=== PATIENT | female | born 1950 | race Caucasian/White ===

== ENCOUNTER 2018-04-21 09:30 | Emergency (ER) | payer MEDICARE ==
[2018-04-21] MEDS ORDERED: Marcaine 0.5%/Epinephrine 10 ML IJ ONE (10:02)
[2018-04-21] MEDS ORDERED: Marcaine 0.5%/Epinephrine 10 ML ONE (10:08)
--- NOTE | 2018-04-21 10:42 | ERPHSYRPT ---
- History of Present Illness Time Seen by Provider: 04/21/18 09:37 Source: patient, family Exam Limitations: no limitations Patient Subjective Stated Complaint: slipped on a slimy area on the ground .. fell and hit the back of her head. No LOC laceration tthe back of her head.. Undertermined size due to hair. JOSELITO DAVILA denies other injuries.. NO neck pain Triage Nursing Assessment: slipped on a slimy area on the ground .. fell and hit the back of her head. No LOC laceration tthe back of her head.. Undertermined size due to hair. JOSELITO DAVILA denies other injuries.. NO neck pain Physician History: [place] falling and striking post occiput; no LOC; stunned briefly; no seizure or neck injury; no blurred vision; no other complaints; no N&V ; no prior hx; witnessed; slight bleeding and local pain only Occurred: just prior to arrival, this morning Severity: moderate Head Injury Location: occipital Method of Injury: fell (slipped on wet dock) Loss of Consciousness: no loss of consciousness Associated Symptoms: denies symptoms Allergies/Adverse Reactions: tramadol Allergy (Intermediate, Verified 04/21/18 10:28) amlodipine [From Norvas] Allergy (Mild, Verified 04/21/18 10:28) lisinopril Allergy (Verified 04/21/18 10:28) metformin Allergy (Verified 04/21/18 10:28) IV dye Allergy (Intermediate, Uncoded 04/21/18 10:28) Immunizations Up to Date: (unknown) - Review of Systems Constitutional: No Symptoms Eyes: No Symptoms Ears, Nose, & Throat: No Symptoms Respiratory: No Cough, No Dyspnea, No Wheezing Cardiac: No Chest Pain, No Palpitations, No Syncope Abdominal/Gastrointestinal: No Abdominal Pain, No Nausea, No Vomiting, No Diarrhea Genitourinary Symptoms: No Symptoms Musculoskeletal: Fall, Injury (post occiput ), No Back Pain, No Neck Pain, No Joint Pain Skin: Other (lac to post occiput), No Cellulitis, No Decubiti, No Rash Neurological: No Gait Changes, No Headache, No Seizure, No Sensory Changes, No Speech Changes, No Vertigo Psychological: No Symptoms Endocrine: No Symptoms Hematologic/Lymphatic: No Symptoms Immunological/Allergic: No Symptoms - Past Medical History Pertinent Past Medical History: Yes - Past Surgical History Past Surgical History: Yes - Social History Smoking Status: Never smoker Exposure to second hand smoke: No Alcohol Use: Socially Drug Use: none Patient Lives Alone: No Significant Family History: no pertinent family hx - Female History Hx Now: No - Nursing Vital Signs Nursing Vital Signs: Initial Vital Signs Temperature 98 F 04/21/18 10:00 Pulse Rate 88 04/21/18 10:00 Respiratory Rate 18 04/21/18 10:00 Blood Pressure 153/106 04/21/18 10:00 O2 Sat by Pulse Oximetry 96 04/21/18 10:00 Pain Scale Pain Intensity 5 - [place] Coma Score Best Eye Response ([place]): (4) open spontaneously Best Verbal Response ([place]): (5) oriented Best Motor Response ([place]): (6) obeys commands [place] Total: 15 - Physical Exam General Appearance: mild distress, alert Head Injury: lacerations (5 cm post occiput with mild bleeding; no FB), tenderness (local to lasceration), No Aguilar's Sign, No ecchymosis, No flap, No raccoon eyes Eye Exam: bilateral eye: normal inspection, PERRL, EOMI, other (vision ok and fundi benign) ENT Exam: airway nml, nml ext.inspection, hearing grossly normal, No clotted nasal blood, No malocclusion, No oral injury Neck Exam: supple, trachea midline, full range of motion, normal alignment, normal inspection, No muscle spasm, No paraspinous muscle tender, No pain on movement of neck, No tenderness, No JVD Cardiovascular/Respiratory Exam: chest non-tender, normal breath sounds, regular rate/rhythm, heart sounds normal, no ecchymosis, no JVD, no M/R/G, no respiratory distress Gastrointestinal/Abdominal Exam: soft, non tender, no distention, no mass, no guarding, no ecchymosis, no organomegaly, normal bowel sounds Pelvic Exam: deferred Rectal Exam: deferred Back Exam: normal inspection, normal range of motion, No CVA tenderness, No vertebral tenderness Extremity Exam: non-tender, normal range of motion, normal inspection, normal capillary refill, No nazia's sign Mental Status Exam: alert, oriented x 3, cooperative tire repair mechanic Exam: normal hearing, normal speech Coordination/Gait Exam: normal gait, normal cerebellar function Motor/Sensory Exam: no motor deficit, no sensory deficit, CN II-XII intact DTR Exam: knee (R): 4+, knee (L): 4+ Skin Exam: normal color, warm, dry, laceration (irregular 5cm post occiput; local tenderness; no FB; min bleeding), No rash, No petechiae, No cyanosis SpO2 Interpretation: normal SpO2: 96 Oxygen Delivery: Room Air Procedures - Laceration/Wound Repair Posterior Medial Head Wound Location: head (post occiput) Wound Length (cm): 5 Wound's Depth, Shape: irregular, into subcut Wound Explored: to base Irrigated: Yes Hibiclens Prep: Yes Anesthesia: local, marcaine 0.5 Volume Anesthetic (ccs): 6 Wound Repaired With: sutures Suture Size/Type: 4-0, chromic gut Number of Sutures: 8 (running interlocking) Layer Closure?: No Sterile Dressing Applied?: Yes Splint Applied?: No Sling Applied?: No - Course Nursing assessment & vital signs reviewed: Yes Ordered Tests: Active Orders 24 hr Category Date Time Status Cold Application STAT Care 04/21/18 10:00 Active Prepare for Sutures STAT Care 04/21/18 10:01 Active Re-Check Vital Signs STAT Care 04/21/18 10:00 Active Sutures STAT Care 04/21/18 10:02 Active Wound Care STAT Care 04/21/18 10:00 Active Medication Summary Discontinued Medications Generic Name Dose Route Start Last Admin Trade Name Rajiv PRN Reason Stop Dose Admin Bupivacaine HCl/Epinephrine Bitart 5 ml 04/21/18 10:02 04/21/18 10:30 Marcaine 0.5%/Epinephrine 10 Ml IJ 04/21/18 10:03 5 ml STAT ONE Administration Bupivacaine HCl/Epinephrine Bitart Confirm 04/21/18 10:08 Marcaine 0.5%/Epinephrine 10 Ml Administered 04/21/18 10:09 Dose 10 ml .ROUTE .STK-MED ONE - Progress Progress: improved, re-examined (after repair) Progress Note: 04/21/18 10:[address] and patient and family elected to observe; recheck showed no indication for such; tolerated procedure well; instructions given Counseled pt/family regarding: diagnosis, need for follow-up - Departure Time of Disposition: 10:45 Departure Disposition: Home Clinical Impression: Head injury due to trauma, 5 cm scalp laceration Condition: Stable Critical Care Time: No Referrals: GONZALO [facility] ATTENDANT [Primary Care Provider] - Instructions: Wound Care (DC), Laceration Repair With Stitches (DC) Additional Instructions: rest; clean and ddry 48 hrs; bacitracin daily; tylenol prn Follow-up with family doctor as directed. Call for appointment. Return if any problems. If you smoke please stop. Call or follow up with your family doctor for assistance if you need it to stop. Please wear your seatbelt when driving. Have a nice day. Thank you for allowing us to participate in your care today. :o) Dr Valerio Power
[2018-04-21 11:00] VITALS: BP 176/86; PULSE 80; O2SAT 98
== END 2018-04-21 10:59 | disposition home or self-care (01) ==
LOC: ED 09:30
DX: S01.01XA Laceration without foreign body of scalp, initial encounter (principal); W01.198A Fall on same level from slipping, tripping and stumbling with subsequent striking against other object, initial encounter; Y93.89 Activity, other specified
CPT/HCPCS: 12002; 96372; 99284

== ENCOUNTER 2024-12-05 06:06 | Day surgery (SDC) | payer MEDICARE ==
[~2024-12-05 06:06] MED LIST: BETADINE 5% OPHTHALMIC 30 ML OP NR; TRIAMCINOLONE 15 MG/ML INJ INTRAOP NR; VIGAMOX/BSS 0.15% SYR IO NR
[2024-12-05] MEDS ORDERED: Lactated Ringers 1,000 ML IV ONE (06:29)
[2024-12-05 06:47] VITALS: RESP 18
[2024-12-05] MEDS: Lactated Ringers 1,000 ML IV SCH (06:57)
[2024-12-05] MEDS: TETRACAINE 0.5% STERI-UNIT SOL OP ONE ×2 (06:57→06:58)
[2024-12-05] MEDS: Ak-Dilate OPHTHALMIC*** 0.71 ML, Cyclogyl 1% OPHTH SOL 0.71 ML, GATIFLOXACIN 0.5% OPHTH... OP SCH (06:57)
[2024-12-05] MEDS ORDERED: Epinephrine Preservative Free 1 MG/ML INTRAOP NR (07:00)
[2024-12-05] MEDS ORDERED: DEXTENZA OP NR (07:00)
[2024-12-05] MEDS ORDERED: DEXMEDETOMIDINE 80 MCG/20ML-NS IV NR (07:00)
[2024-12-05 07:26] LABS: Calcium 9.1 mg/dL (8.4-10.2); Creatinine 1 0.84 mg/dL (0.52-1.04); EST GLOMERULAR FILTRATION RATE 73.8 ML/MIN; Potassium 3.9 mmol/L (3.5-5.1)
[2024-12-05] MEDS ORDERED: Zofran 4 MG/2 ML VIAL IV PRN (07:30)
[2024-12-05] MEDS ORDERED: propofoL IV ONE ×2 (08:01→08:09)
[2024-12-05] MEDS: ACETAZOLAMIDE 250 MG TABLET PO ONE (08:27)
[2024-12-05 08:32] VITALS: PULSE 61
[2024-12-05 08:36] VITALS: BP 138/63; TEMP 97.2; O2SAT 95
== END 2024-12-05 08:28 | disposition home or self-care (01) ==
LOC: SDC 06:06
PROVIDERS: ATTEND Ophthalmology
DX: H25.812 Combined forms of age-related cataract, left eye (principal); I10 Essential (primary) hypertension; E11.9 Type 2 diabetes mellitus without complications; I51.9 Heart disease, unspecified
CPT/HCPCS: 36415; 80048; 93005; 99100; C1780; J0171; J1096; J2704; A9270-GY